=== PATIENT | male | born 1970 | race Caucasian/White ===

== ENCOUNTER 2020-07-19 16:42 | Emergency (ER) | payer OTHER, SELFPAY ==
[2020-07-19 16:43] VITALS: BP 169/99; PULSE 68; RESP 17; TEMP 35.9; O2SAT 98; BMI 29.0
--- NOTE | 2020-07-19 16:49 | NURSING ---
NO OLD EKGS
--- NOTE | 2020-07-19 17:01 | EKG12_ITS ---
Test Reason : CP Blood Pressure : / mmHG Vent. Rate : 057 BPM Atrial Rate : 057 BPM P-R Int : 152 ms QRS Dur : 096 ms QT Int : 414 ms P-R-T Axes : 006 -16 015 degrees QTc Int : 402 ms Sinus bradycardia Otherwise normal ECG Confirmed by JACK GONGORA, ZEB ([id number]), news editor LUIS TERRY ([id number]) on 07/22/2020 10:58:00 AM Referred By: OLENA/KATHY Confirmed By:ZEB SANTIAGO MD
--- NOTE | 2020-07-19 17:02 | ED.VIS.GEN ---
History of Present Illness Chief Complaint: Chest Pain Informant: Patient Onset: Days Timing: Intermittent Current Severity: Mild Maximum Severity: Mild Narrative: Patient presents with intermittent chest pain over the past couple of days. He reports sharp pain and points to a focal area in the left chest wall. He denies that it is worse with deep breath, activity, or activity. He states is really no rhyme or reason to when it strikes. He does not feel short of breath. He denies any significant cardiac history. He states he does run regularly and has been able to run normally without pain. Past Medical History - Allergies and Home Meds Allergies/Adverse Reactions: Allergies No Known Allergies Allergy (Verified 07/19/20 16:43) Primary Care Physician: Delvin Rey III, MD [Primary Care Provider] - Past Medical History: None Lives: Spouse/ Significant Other Review of Systems General: Denies: Chills, Fever Eyes: Denies: Visual changes - bilaterally ENT: Denies: Bilateral ear pain Cardiovascular: Reports: Chest pain. Denies: Palpitations, Heart racing Respiratory: Denies: Dyspnea, Cough Gastrointestinal: Denies: Abdominal pain, Nausea, Vomiting, Diarrhea Genitourinary: Denies: Dysuria Musculoskeletal: Denies: Swelling, Extremity Pain Skin: Denies: Rash Neurological: Denies: Headache Hematologic: Denies: Easy bruising, Easy bleeding Allergy: Denies: Uticaria Physical Exam Vital Signs/Narrative: Vital Signs Temp Pulse Resp BP Pulse Ox 07/19/20 16:43 96.6 F L 68 17 169/99 H 98 Inital Vital Signs reviewed: Yes General: Well nourished, Well developed Head: Normocephalic ENT: Moist mucous membranes Neck: Supple Cardiovascular: Regular rate, Regular rhythm Respiratory: No distress, CTA bilaterally, Chest tenderness - Chest wall tenderness of the left pectoral muscle. Abdomen: Soft, Nontender Back: Nontender Extremities: Nontender Skin: Normal color Neurological: Alert, Oriented x3 Psychological: Normal affect Diagnostic/Tx/Re-eval Impressions Chest X-Ray 07/19/20 17:21 IMPRESSION: No acute thoracic pathology. Electronically Signed: Rustam Mcmahan, at 17:47 EST Tel , Service support , 07/19/20 17:21 Chest 1 View (Portable) [RAD] Stat Laboratory Results 07/19/20 07/19/20 07/19/20 16:55 16:55 16:55 WBC 6.9 RBC 5.03 Hgb 16.0 Hct 46.1 MCV 91.7 MCH 31.8 MCHC 34.7 RDW Std Deviation 41.8 RDW Coeff of Main 12.7 Plt Count 179 MPV 10.0 Immature Gran % (Auto) 0.400 Neut % (Auto) 50.9 Lymph % (Auto) 36.0 Arroyo % (Auto) 9.5 Eos % (Auto) 2.9 Baso % (Auto) 0.3 Absolute Neuts (auto) 3.5 Absolute Lymphs (auto) 2.50 Nucleated RBC % 0 D-Dimer Quant (PE/DVT) < 0.27 L Sodium 141 Potassium 3.7 Chloride 107 Carbon Dioxide 29.0 Anion Gap 5 BUN 9 Creatinine 0.98 Estim Creat Clear Calc 103.68 Est GFR (MDRD) Af Amer 103 Est GFR (MDRD) Non-Af 85 BUN/Creatinine Ratio 9.1 L Glucose 116 H Calcium 8.6 Troponin I < 0.015 - EKG Initial EKG Interpretation: Sinus Bradycardia - Sinus bradycardia 57 bpm. No sign of acute ischemia. - Medical Decision Making Patient was given aspirin on arrival here. 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 On repeat evaluation patient is resting comfortably. With negative work-up and reproducibility of the chest wall pain I do feel he is safe to be discharged home. He is given return instructions. He will follow-up with cardiology as an outpatient as he already had planned. ED Disposition - Plan for ED Patient: Disposition: Home or Assisted Living Diagnosis: Atypical chest pain Instructions: ED Chest Pain Atypical Unkn Cause Referrals: Delvin Rey III, MD [Primary Care Provider] - As soon as possible
[2020-07-19 17:15] LABS: Absolute Neutrophil Count 3.5 X10^3/uL (2.0-7.7); Basophil# 0.02 X10^3/uL; Basophil% 0.3 % (0-1); Eosinophils% 2.9 % (0-5); Hematocrit 46.1 % (40-54); Mean Corp Hgb Conc 34.7 g/dL (32-36); Mean Corpuscular Hgb 31.8 pg (27.0-32.0); Mean Corpuscular Volume 91.7 fL (80-94); Monocyte# 0.66 X10^3/uL; Monocyte% 9.5 % (0-10); NRBC Flagged by Analyzer 0 % (0-5); Neutrophil # 3.53 X10^3/uL (2.7-7.7); Neutrophil % 50.9 % (47-70); Platelet Count 179 K/mm3 (150-450); RBC Distribution Width CV 12.7 % (11.6-14.6); RBC Distribution Width SD 41.8 fl (35.1-43.9); Red Blood Count 5.03 M/mm3 (4.6-6.2); White Blood Count 6.9 K/mm3 (4.4-11.0)
--- NOTE | 2020-07-19 17:21 | RAD_ITS ---
STUDY: X-RAY CHEST REASON FOR EXAM: Male, 50 years old. Chest pain TECHNIQUE: Frontal view of the chest COMPARISON: None. FINDINGS: The lungs are clear. There are no pleural effusions. There is no pneumothorax. The heart is normal in size. The visualized osseous structures are within normal limits. RAD/Chest 1 View (Portable) IMPRESSION: No acute thoracic pathology. Electronically Signed: Rustam Mcmahan, at 17:47 EST Tel , Service support ,
[2020-07-19] MEDS: Aspirin 81 MG TAB.CHEW 324 MG PO (17:23)
[2020-07-19 17:31] LABS: D-Dimer Quantitative (DVT/PE) < 0.27 FEU/ug/m (0.27-0.49)
[2020-07-19 17:35] LABS: Anion Gap 5 (5-15); BUN 9 mg/dL (7-18); BUN/Creat Ratio 9.1 RATIO (10-20); Calcium,Total 8.6 mg/dL (8.5-10.1); Chloride 107 mmol/L (98-107); Creatinine, Serum 0.98 mg/dL (0.70-1.30); EST Glomerular Filtration Rate 85 mL/min (>60); Est Glom Filt Rate - Afr Amer 103 mL/min (>60); Estimated Creatinine Clearance 103.68 ml/min; Glucose 116 mg/dL (74-106); Potassium 3.7 mmol/L (3.5-5.1); Sodium Level 141 mmol/L (136-145)
[2020-07-19 17:57] VITALS: BP 119/96; PULSE 53; RESP 16; O2SAT 97
[2020-07-19 18:00] VITALS: BP 141/89; PULSE 56; RESP 16; O2SAT 96
[2020-07-19 19:10] VITALS: BP 130/93; PULSE 54; RESP 16; O2SAT 95
[2020-07-19 19:11] VITALS: BP 130/93; PULSE 54; RESP 16; O2SAT 95
== END 2020-07-19 19:14 | disposition home or self-care (01) ==
PROVIDERS: Emergency Provider Emergency Medicine; PCP Family Medicine
DX: R07.89 Other chest pain (principal)
CPT/HCPCS: 71045; 80048; 84484; 85025; 85379; 93005; 99284; A4216

== ENCOUNTER 2023-04-01 01:42 | Emergency (ER) | payer OTHER, SELFPAY ==
[2023-04-01 01:42] VITALS: BP 157/100; PULSE 57; RESP 15; TEMP 36; O2SAT 93; BMI 29.0
--- NOTE | 2023-04-01 01:58 | RAD_ITS ---
EXAM: XR CHEST, 1 VIEW CLINICAL INDICATION: chest pain TECHNIQUE: Frontal view of the chest. COMPARISON: 07/19/2020. FINDINGS: LUNGS AND PLEURAL SPACES: Unremarkable. No consolidation or edema. No pneumothorax. No effusion. HEART: Unremarkable. Cardiac silhouette not enlarged. MEDIASTINUM: Central airways and mediastinal contour are unremarkable. BONES/JOINTS: Unremarkable. SOFT TISSUES: Unremarkable. RAD/Chest 1 View (Portable) IMPRESSION: No radiographic evidence of acute cardiopulmonary disease. Electronically Signed: Antonio Holm MD at 2:35 EDT ,
--- NOTE | 2023-04-01 01:58 | EKG12_ITS ---
Test Reason : CP Blood Pressure : / mmHG Vent. Rate : 054 BPM Atrial Rate : 054 BPM P-R Int : 150 ms QRS Dur : 102 ms QT Int : 426 ms P-R-T Axes : 052 -25 029 degrees QTc Int : 403 ms Sinus bradycardia Otherwise normal ECG Confirmed by JACK GONGORA, ZEB ([id number]), business editor LUIS TERRY ([id number]) on 04/01/2023 1:32:40 PM Referred By: PL Confirmed By:ZEB SANTIAGO MD
--- NOTE | 2023-04-01 02:02 | EDS_ITS ---
HPI History of Present Illness Chief Complaint: Chest Pain Informant: patient Narrative Narrative: Patient presents with chest pain. Patient states that he woke up about an hour or so ago. He had some pressure in the middle of his chest. He had a little bit of pressure in his back. Not really nauseated or short of breath or diaphoretic. It did seem to get worse when he laid down a little bit better sitting up. But it would not go away. So he came in for evaluation. He has just a little bit of it left now but it is mostly gone. He has had 1 or at their episode of chest pain but's not sure if it was exactly like this. He has no history of GERD or acid reflux and no sour taste in his mouth. Patient has no history of high blood pressure, cholesterol, diabetes, smoking, family history of heart disease. He has never had a stress test. He has no tr pippa surgery immobilization or known risk factor for DVT or PE. Pain is not pleuritic. He also is a regular runner and runs about 2 miles a day and has not been having symptoms even recently with this. PFSH PFSH Home Medications NK 07/19/20 [History Last Taken Unknown] Allergy/AdvReac Type Severity Reaction Status Date / Time No Known Allergies Allergy Verified 04/01/23 01:47 Family History Father Diabetes Mother Ovarian cancer Surgical History History of arthroscopy of left shoulder Hx of arthroscopy of right knee Hx of elbow surgery Social History Smoking Status: Never smoker ROS ROS ED ROS Narrative A complete review of systems was performed and is negative except as documented in the history of present illness. Some specific details below. Constitutional: No recent fevers or chills. Malaise. He has not been notably tired or fatigued recently. EYE: No discharge ENT: No difficulty swallowing. No swelling. No pain. No reflux symptoms. No history of GERD. CV: See history of present illness. Respiratory: Not having dyspnea GI: No abdominal pain. No nausea vomiting diarrhea. : No frequency dysuria or hematuria. Musculoskeletal: No recent trauma. No pains. No swelling. Skin: No rash. Nondiaphoretic. Neuro: No weakness or numbness. Endocrine: No polyuria or polydipsia. EXAM Physical Exam Narrative Exam Narrative: CONSTITUTIONAL: Patient is nontoxic in appearance. The patient looks comfortable. Work of breathing looks normal. HEENT: No notable trauma. Mucous membranes moist. EYES: No conjunctival injection. No proptosis. NECK:No JVD. No stridor. CARDIOVASCULAR: Regular rate. Regular rhythm. No notable murmur. No JVD. His rate runs about 55-60 on the monitor but is a sinus bradycardia. This is consistent with his history of being active and a regular runner. RESPIRATORY: No respiratory distress. Breathing is unlabored. No wheezes. No rhonchi. No rales. No pain with a deep breath. No chest wall tenderness. No lesions on his chest or back that are noted. GASTROINTESTINAL: Not distended. Bowel sounds are normal. No tenderness. No guarding. No rebound. No palpable mass. No bruit is heard. GENITOURINARY: No tenderness over the bladder. No CVA tenderness. MUSCULOSKELETAL: Atraumatic. No peripheral edema. No cord. No tenderness along the deep venous system. No asymmetry. No distended veins. Peripheral pulses are normal. NEUROLOGICAL: Patient is alert and appropriate. No focal deficit noted. SKIN: No noted rashes. No diaphoresis. PSYCHIATRIC: Patient is calm. Mood is appropriate. Const Vital Signs: 04/01/23 01:42 04/01/23 01:45 04/01/23 02:04 Temperature 96.8 F L Temperature Source Temporal Pulse Rate 57 L Respiratory Rate 15 Respiratory Effort Normal Non-Labored Blood Pressure 157/100 H Blood Pressure Mean 119 Pulse Ox 93 Oxygen Delivery Method Room Air Room Air 04/01/23 04:10 Temperature Temperature Source Pulse Rate 54 L Respiratory Rate 16 Respiratory Effort Blood Pressure 145/91 H Blood Pressure Mean 109 Pulse Ox 96 Oxygen Delivery Method Heart Score History: Slightly/Non-Suspicious ECG: Normal Age: >45 - <65 years Risk Factors: No Risk Factors Troponin: </= Normal Limit Score: 1 MDM MDM MDM Narrative Medical decision making narrative: Patient CBC is normal. Patient's electrolytes are normal other than minimally low potassium which should self correct. Glucose was also mildly elevated but this is not a fasting glucose. Graph patient's troponin is 6 which is negative and normal. Patient's repeat troponin is 6. With his low heart score, overall health, tolerance of significant regular exercise, negative EKG and 2 negative troponins I think it is appropriate we get him home and he is safe for follow-up. Lab Data Attestation: I reviewed the patient's lab results. Labs: Laboratory Results - last 24 hr 04/01/23 04/01/23 01:50 04:05 WBC 6.0 RBC 4.85 Hgb 15.6 Hct 44.7 MCV 92.2 MCH 32.2 H MCHC 34.9 RDW Std Deviation 41.1 RDW Coeff of Main 12.3 Plt Count 189 MPV 10.0 Immature Gran % (Auto) 0.200 Neut % (Auto) 44.1 L Lymph % (Auto) 41.7 H Arroyo % (Auto) 9.0 Eos % (Auto) 4.3 Baso % (Auto) 0.7 Absolute Neuts (auto) 2.7 Absolute Lymphs (auto) 2.51 Nucleated RBC % 0 Sodium 141 Potassium 3.3 L Chloride 106 Carbon Dioxide 30.0 Anion Gap 5 BUN 9 Creatinine 0.83 Estim Creat Clear Calc 118.29 Est GFR (MDRD) Af Amer 124 Est GFR (MDRD) Non-Af 102 BUN/Creatinine Ratio 10.8 Glucose 121 H Calcium 8.8 Troponin I High Sens 6 6 Radiography Diagnostic Testing: Clinical Impression(s) from Imaging Studies Chest X-Ray 04/01/23 01:58 IMPRESSION: No radiographic evidence of acute cardiopulmonary disease. Electronically Signed: Antonio Holm MD at 2:35 EDT , EKG Initial EKG: Comments: My independent or rotation of the patient's EKG done for chest pain shows a sinus rhythm with bradycardic rate of 54. No ventricular ectopy. No acute ST elevation or depression consistent with infarct or ischemia. CT interval, QRS duration and QTc are all normal. This EKG is similar to 19 July 2020. Discharge Plan Triage Chief Complaint: Chest Pain ED Provider: Stephen Barriga Dx/Rx/DC Orders Clinical Impression: Chest pain Instructions: ED Chest Pain, Uncertain Cause Prescriptions: No Action NK Primary Care Provider: Care Physician,No Primary Referrals: Mary Eaton MD [Med Staff - Logging Truck Driver] - 3-5 Days if not improving NOT,DEFINED [Non-Staff] - Activity Restrictions/Additional Instructions: Follow-up with your family doctor or Dr. Eaton as above. Disposition Disposition: Home, Self Care
[2023-04-01 02:03] LABS: Absolute Lymphocyte Count 2.51 X10^3/uL (0.83-4.51); Absolute Neutrophil Count 2.7 X10^3/uL (2.0-7.7); Basophil# 0.04 X10^3/uL; Basophil% 0.7 % (0-1); Eosinophil# 0.26 X10^3/uL; Eosinophils% 4.3 % (0-5); Hematocrit 44.7 % (40-54); Hemoglobin 15.6 g/dL (13.0-16.5); Lymphocyte # 2.51 X10^3/ul (0.83-4.51); Lymphocyte % 41.7 % (19-41); Mean Corp Hgb Conc 34.9 g/dL (32-36); Mean Corpuscular Hgb 32.2 pg (27.0-32.0); Mean Corpuscular Volume 92.2 fL (80-94); Monocyte# 0.54 X10^3/uL; NRBC Flagged by Analyzer 0 % (0-5); Neutrophil # 2.66 X10^3/uL (2.7-7.7); Neutrophil % 44.1 % (47-70); Platelet Count 189 K/mm3 (150-450); RBC Distribution Width CV 12.3 % (11.6-14.6); RBC Distribution Width SD 41.1 fl (35.1-43.9); Red Blood Count 4.85 M/mm3 (4.6-6.2)
[2023-04-01] MEDS: Aspirin 81 MG TAB.CHEW 324 MG PO (02:07)
[2023-04-01 02:18] LABS: Anion Gap 5 (5-15); BUN 9 mg/dL (7-18); BUN/Creat Ratio 10.8 RATIO (10-20); Calcium,Total 8.8 mg/dL (8.5-10.1); Chloride 106 mmol/L (98-107); Creatinine, Serum 0.83 mg/dL (0.70-1.30); EST Glomerular Filtration Rate 102 mL/min (>60); Est Glom Filt Rate - Afr Amer 124 mL/min (>60); Estimated Creatinine Clearance 118.29 ml/min; Glucose 121 mg/dL (74-106); Potassium 3.3 mmol/L (3.5-5.1); Sodium Level 141 mmol/L (136-145); Troponin-I HS (w/2H Reflex) 6 pg/mL (3.0-78.0)
[2023-04-01 04:00] LABS: Reflex Troponin-HS? (from REC) Y
[2023-04-01 04:10] VITALS: BP 145/91; PULSE 54; RESP 16; O2SAT 96
[2023-04-01 05:01] LABS: Troponin-I HS 6 pg/mL (3.0-78.0)
[2023-04-01 05:19] VITALS: BP 142/96; PULSE 44; RESP 18; O2SAT 99
== END 2023-04-01 05:20 | disposition home or self-care (01) ==
PROVIDERS: Emergency Provider Emergency Medicine; Visit Provider Emergency Medicine
DX: R07.9 Chest pain, unspecified (principal)
CPT/HCPCS: 71045; 80048; 84484; 85025; 93005; 99285; A4216